=== PATIENT | female | born 1990 | race Caucasian/White ===

== ENCOUNTER 2017-03-05 03:07 | Inpatient (IN) | payer OTHER ==
[2017-03-05] MEDS ORDERED: DEXTROSE 5%-LACTATED RINGERS 1,000 ML IV PRN (03:32)
[2017-03-05] MEDS ORDERED: OXYTOCIN/DEXTROSE 5%-WATER 30 UNITS/500 ML BAG IV ONE ×2 (03:32→13:50)
[2017-03-05] MEDS ORDERED: LIDOCAINE HCL 50 ML VIAL PERI PRN (03:32)
[2017-03-05] MEDS ORDERED: PENICILLIN G POTASSIUM 5 MILLIONUNT in DEXTROSE 5 % IN WATER 100 ML IV ONE ×2 (03:32)
[2017-03-05] MEDS: RINGERS SOLUTION,LACTATED 1,000 ML IV ONE ×2 (04:19→08:50)
[2017-03-05] MEDS: PENICILLIN G POTASSIUM 2.5 MILLIONUNT in DEXTROSE 5 % IN WATER 100 ML IV SCH ×4 (07:59→12:01)
--- NOTE | 2017-03-05 09:11 | PN ---
Progess Note - Interim Narrative: 03/05/17 09:07 Patient requesting epidural Vital signs stable. Pitocin was at 6 mu/min, now off. FHT: 125 baseline, reassuring Contractions q 3-4 min Cervix: 4-5/90/-1 Impression: Intrauterine at 39-3/7 weeks in labor Plan: Epidural ordered
[2017-03-05] MEDS ORDERED: BUPIVACAINE HCL/PF 30 ML VIAL EP ONE (09:30)
[2017-03-05] MEDS ORDERED: BUPIVACAINE HCL/0.9 % NACL/PF 250 ML EP PRN (09:30)
[2017-03-05] MEDS ORDERED: ONDANSETRON HCL/PF 2 MG/ML VIAL IV PRN (09:30)
[2017-03-05] MEDS ORDERED: NALOXONE HCL 1 MG/1 ML SYRG IV PRN (09:30)
--- NOTE | 2017-03-05 10:05 | OR ---
Anesthesia Procedure Note - Anesthesia Procedure Note Date of Service: 03/05/17 Narrative: Vital Signs - Last Taken Temp 36.6 C 03/05/17 09:31 Pulse 89 03/05/17 09:31 Resp 18 03/05/17 09:31 BP 124/76 03/05/17 09:31 Pulse Ox 99 03/05/17 09:31 03/05/17 10:04 ANESTHESIA PROCEDURE NOTE Date of Procedure: 03/05/2017. Time of procedure: 939. Performed by: Chris Talbot CRNA Waitress: None. Preprocedure diagnosis: Active labor. Post procedure diagnosis: Same. Procedure: Insertion of labor epidural. Indications: The patient is a 26 -year-old female in active labor requesting labor epidural for pain management. Findings: See below. Details of the procedure: The patient was placed in a sitting position. DuraPrep as well as Betadine swabs 3 was applied to the patient's back. Patient was then draped in a sterile fashion. Lidocaine 1% was infiltrated to the skin and subcutaneous tissues at the level of the L3-4 interspace. The epidural space was identified using a 18-gauge Tuohy needle with loss-of- resistance technique. Epidural catheter was inserted to a depth of 13 centimeters at skin. Negative test dose was elicited using 3 mL of 1.5% preservative-free lidocaine plus epinephrine 1 200,000. The epidural catheter was then taped and secured in place. A loading dose of 8 mL of 0.25% preservative-free bupivacaine was administered to the epidural catheter after negative aspiration for blood and CSF. EBL: Minimal. Fluids: N/A. Specimen: N/A. Post procedure condition: The patient tolerated the procedure well. No complications were noted. Thank you for this consultation. Chris Talbot CRNA
--- NOTE | 2017-03-05 13:48 | PN ---
Subjective - Date and Time Seen Date: 03/05/17 Time: 13:45 Objective - Vitals Vitals: Last Vital Signs Temp 36.6 C 03/05/17 10:06 Pulse 98 03/05/17 10:06 Resp 18 03/05/17 10:06 BP 141/79 03/05/17 10:06 Pulse Ox 98 03/05/17 10:06 Spontaneous vaginal delivery of viable female at 1327 on 03/05/2017 with Apgars 8 and 9, weighing 3907 g in SHANTI position with a tight nuchal cord 1 Cord clamping delayed approximately 1 minute Placenta delivered complete, intact, with three vessel cord Estimated blood loss: 200 mL responded to Pitocin 30 mU/m and uterine massage. Lacerations: None Cauti Physician Documentation - Urinary Catheter Management Urethral (Goins) Date of Insertion: 03/05/17 Time of Insertion: 10:21 History for MU Definition: * The number of deliveries resulting in a live the patient experienced prior to current hospitalization * The previous delivery of live twins or any live multiple gestation is considered one live event. *If primagravida or nulliparous is documented select zero for the number of previous live births. Live Events: 2
[2017-03-05] MEDS ORDERED: BENZOCAINE/MENTHOL 81 SPRAY CAN TP PRN (13:50)
[2017-03-05] MEDS ORDERED: SENNOSIDES 8.6 MG TABLET PO PRN (13:50)
[2017-03-05] MEDS ORDERED: GLYCERIN/WITCH HAZEL LEAF 40 APPL BOX TP PRN (13:50)
[2017-03-05] MEDS ORDERED: BISACODYL 10 MG SUPP.RECT RC PRN (13:50)
[2017-03-05] MEDS ORDERED: HYDROCORTISONE 30 APPL TUBE TP PRN (13:50)
[2017-03-05] MEDS ORDERED: oxyCODONE HCL/ACETAMINOPHEN 1 TAB TABLET PO PRN (13:50)
[2017-03-05] MEDS: IBUPROFEN 800 MG TABLET PO PRN ×2 (16:45→22:47)
[2017-03-05] MEDS: DOCUSATE SODIUM 100 MG CAPSULE PO SCH (20:51)
[2017-03-05] MEDS: oxyCODONE HCL/ACETAMINOPHEN 1 TAB TABLET PO PRN (20:51)
[2017-03-06] MEDS: oxyCODONE HCL/ACETAMINOPHEN 1 TAB TABLET PO PRN ×4 (04:45→23:45)
[2017-03-06] MEDS: LEVOTHYROXINE SODIUM 150 MCG TABLET PO SCH (08:19)
[2017-03-06] MEDS: PRENATAL VIT#96/FERROUS FUM/FA 1 TAB TABLET PO SCH (08:19)
[2017-03-06] MEDS: DOCUSATE SODIUM 100 MG CAPSULE PO SCH ×2 (08:19→20:13)
[2017-03-06] MEDS: IBUPROFEN 800 MG TABLET PO PRN ×2 (08:20→14:46)
--- NOTE | 2017-03-06 13:36 | PN ---
Subjective - Date and Time Seen Date: 03/06/17 Time: 13:35 Objective - Vitals Vitals: Last Vital Signs Temp 36.4 C L 03/06/17 12:01 Pulse 106 H 03/06/17 12:01 Resp 18 03/06/17 12:01 BP 113/70 03/06/17 12:01 Pulse Ox 96 03/06/17 12:01 Patient denies complaints. Lochia wnl Abdomen - soft, nontender Uterus - firm, at umbilicus - 1 No calf tenderness Impression: day #1 - s/p spontaneous vaginal delivery. Plan: Continue routine care Cauti Physician Documentation - Urinary Catheter Management Urethral (Goins) Date of Insertion: 03/05/17 Time of Insertion: 10:21
[2017-03-07] MEDS: oxyCODONE HCL/ACETAMINOPHEN 1 TAB TABLET PO PRN (05:43)
[2017-03-07] MEDS: LEVOTHYROXINE SODIUM 150 MCG TABLET PO SCH (07:28)
[2017-03-07] MEDS: IBUPROFEN 800 MG TABLET PO PRN (07:30)
[2017-03-07 07:56] VITALS: BP 123/82
[2017-03-07] MEDS: PRENATAL VIT#96/FERROUS FUM/FA 1 TAB TABLET PO SCH (08:37)
[2017-03-07] MEDS: DOCUSATE SODIUM 100 MG CAPSULE PO SCH (08:37)
--- NOTE | 2017-03-07 09:14 | PN ---
Subjective - Date and Time Seen Date: 03/07/17 Time: 09:14 Objective - Vitals Vitals: Last Vital Signs Temp 36.5 C 03/07/17 07:30 Pulse 89 03/07/17 07:30 Resp 18 03/07/17 07:30 BP 123/82 03/07/17 07:30 Pulse Ox 97 03/07/17 07:30 Patient denies complaints. Lochia wnl Abdomen - soft, nontender Uterus - firm, at umbilicus - 2 No calf tenderness Impression: day #2 - s/p spontaneous vaginal delivery. Plan: Routine discharge instructions Cauti Physician Documentation - Urinary Catheter Management Urethral (Goins) Date of Insertion: 03/05/17 Time of Insertion: 10:21
== END 2017-03-07 14:30 | disposition home or self-care (01) | DRG 775 ==
LOC: OB 03:07 → MS 03-06 15:06
PROVIDERS: ADMIT Obstetrics & Gynecology; ATTEND Obstetrics & Gynecology
PROC: 10E0XZZ Delivery of Products of Conception, External Approach (ICD-10-PCS; principal; 2017-03-05)
PROC: 10907ZC Drainage of Amniotic Fluid, Therapeutic from Products of Conception, Via Natural or Artificial Opening (ICD-10-PCS; 2017-03-05)
PROC: 4A1HXCZ Monitoring of Products of Conception, Cardiac Rate, External Approach (ICD-10-PCS; 2017-03-05)
PROC: 3E0S3CZ (ICD-10-PCS; 2017-03-05)
DX: O99.824 Streptococcus B carrier state complicating childbirth (principal); O69.1XX0 Labor and delivery complicated by cord around neck, with compression, not applicable or unspecified; O99.284 Endocrine, nutritional and metabolic diseases complicating childbirth; E03.9 Hypothyroidism, unspecified; Z3A.39 39 weeks gestation of pregnancy; Z37.0 Single live birth